=== PATIENT | female | born 1995 | race Caucasian/White ===

== ENCOUNTER → 2017-06-12 14:52 | Outpatient (CLI) | payer MEDICAID, SELFPAY ==
[2017-06-12 15:47] LABS: Hemoglobin 14.4 g/dl (12.0-15.0); Mean Corp Hgb Conc 32.7 g/gl (32-36); Mean Corpuscular Hgb 28.7 pg (27.0-32.0); Mean Corpuscular Volume 87.8 fL (81-99); Mean Platelet Vol. 11.5 fl (6.2-12.0); Platelet Count 231 K/mm3 (150-450); RBC Distribution Width CV 13.3 % (11.6-14.6); Red Blood Count 5.01 M/mm3 (4.2-5.4); White Blood Count 8.2 K/mm3 (4.4-11.0)
[2017-06-12 15:48] LABS: Scan Indicated on CBC? Y/N NO
[2017-06-12 15:55] LABS: Erythrocyte Sedimentation Rate 2 mm/hr (0-20)
[2017-06-12 16:09] LABS: Thyroid Stim Hormone (TSH) 1.76 uIU/mL (0.358-3.74)
== END ==
PROVIDERS: Visit Provider Obstetrics & Gynecology
DX: N92.1 Excessive and frequent menstruation with irregular cycle (principal)
CPT/HCPCS: 84443; 85027; 85652

== ENCOUNTER 2017-07-06 08:05 | Day surgery (SDC) | payer MEDICAID, SELFPAY ==
[2017-06-22 17:38] LABS: Hematocrit 40.2 % (37-47); Hemoglobin 13.7 g/dl (12.0-15.0); Mean Corp Hgb Conc 34.1 g/gl (32-36); Mean Corpuscular Hgb 29.5 pg (27.0-32.0); Mean Corpuscular Volume 86.6 fL (81-99); Mean Platelet Vol. 11.9 fl (6.2-12.0); Platelet Count 260 K/mm3 (150-450); RBC Distribution Width SD 40.2 fl (35.1-43.9); Red Blood Count 4.64 M/mm3 (4.2-5.4); White Blood Count 7.4 K/mm3 (4.4-11.0)
[2017-06-22 17:42] LABS: Partial Thromboplast Time 27.1 Seconds (24.1-36.2)
[2017-06-22 18:24] LABS: Scan Indicated on CBC? Y/N NO
[2017-07-06] VITALS (8 sets, daily range): BP systolic 117–142; BP diastolic 72–89; PULSE 88–109; RESP 16–18; TEMP 36.1–36.6; O2SAT 96–100; BMI 27.6
--- NOTE | 2017-07-06 | MISC_PTH ---
PATIENT: YVETTE MIJARES [place] [facility] [id number] AGE/SX: 21/F ROOM: RE07/06/[address]: Dr. Nickie Liz MD : 1995 BED: DIS: 07/06/2017 SPEC #: [id number] RECD: 07/07/17 13:19 STATUS: ERENDIRA REQ #: [id number] NADINE: 07/06/17 00:[address]: Nickie Moreno DEPT: SURGICAL PATHOLOGY RECD BY: Jair Peña ENTERED: 07/07/17 13:20 [place] [facility] [place]: Racheal Patton, HAMZAH Tissues: A - Peritoneum, NOS B - Peritoneum, NOS C - Peritoneum, NOS Procedures: Surgery Specimen Level IV HEADER OPERATION: Diagnostic laparoscopy, excision of endometriosis PRE-OP DIAGNOSIS: Chronic pelvic pain TISSUE SUBMITTED: A ? Right uterosacral biopsy, B ? Right ovarian fossa peritoneum biopsy, C ? Anterior cul-de-sac biopsy MICROSCOPIC DIAGNOSIS A. Right uterosacral biopsy: Mesothelial-lined fibroadipose and fibroconnective tissue, negative for endometriosis. B. Right ovarian fossa peritoneum, biopsy: Mesothelial-lined fibroadipose and fibroconnective tissue, negative for endometriosis.. C. Anterior cul-de-sac, biopsy: Mesothelial-lined fibroadipose and fibroconnective tissue, negative for endometriosis. GINA:mylene 07/11/17 MICROSCOPIC DESCRIPTION Slides are reviewed. GROSS DESCRIPTION A - Received in fixative is one container labeled with the patient's name and designated right uterosacral biopsy. The specimen consists of a piece of brewer soft tissue measuring 0.7 x 0.5 x 0.1 cm. The specimen is totally submitted in one cassette. B - Received in fixative is one container labeled with the patient's name and designated right ovarian fossa peritoneum. The specimen consists of an irregular piece of brewer-pink soft tissue measuring 2 x 1 x 0.2 cm. The specimen is totally submitted in one cassette. C - Received in fixative is one container labeled with the patient's name and designated anterior cul-de-sac. The specimen consists of two pieces of brewer soft tissue that in aggregate measure 1 x 0.1 x 0.1 cm. The specimen is totally submitted in one cassette. / GINA:mylene 07/07/17 TC:5 CPT: 68752 x3
[2017-07-06 08:23] LABS: Internal QC Validated? YES +Cl - CLEAR BKGD; Pregnancy, Urine Negative Negative
[2017-07-06] MEDS: Bupivacaine Mpf 0.5% 30 ML VIAL (12:57)
--- NOTE | 2017-07-06 13:07 | PCM.DC ---
- Discharge Diagnoses Current Active Problems: Endometriosis Reason(s) for Visit for Discharge Instructions: Laparoscopy You will use the following diet at home:: No restrictions Your food should be the consistency of: Regular Discharge Activity: Return to Normal Activity, May not drive while taking narcotic pain medications., May Shower, May Take a Tub Bath May resume sexual activity in: - - 2-4 weeks Lifting Restrictions: 10-20lb Call your doctor if your incision/area has: Continuous Slow Oozing, Sudden Increased Bleeding, Increased Pain/ Swelling, Increased Redness Call your doctor if you observe: Fever of 101 or Higher, Inability to urinate, Inability to have a bowel movement, Using more than one pad per hour, Shortness of breath, Chest pain, Calf discomfort, Uncontrolled pain Suture Line Care: Avoid Pulling/Pushing Cleanse incision/area with: Soap & Water, Keep Dressing Clean & Dry Additional Dressing/Incision Instructions:: Remove dressing in 24 hours. Steristrips are underneath the dressing - wet these on Monday and remove. Allergies/Adverse Reactions: Allergies amoxicillin [From Augmentin] Allergy (Verified 06/29/17 15:22) Hives cefprozil [From Cefzil] Allergy (Verified 07/06/17 08:20) Nausea/Vom/Diarrhea cefuroxime [From Ceftin] Allergy (Verified 06/29/17 15:22) Hives clavulanic acid [From Augmentin] Allergy (Verified 06/29/17 15:22) Hives Medications to take at Discharge Norgestimate-Ethinyl Estradiol [Tri-Linyah Tablet] 1 tab PO DAILY 06/29/17 Docusate Sodium [Colace] 100 mg PO BID PRN PRN #60 cap 07/06/17 Ibuprofen 600 mg PO TID PRN #30 tab 07/06/17 Oxycodone [Oxyir] 1 - 2 tab PO Q6H PRN PRN 3 Days #28 tablet 07/06/17 The following prescriptions were given: Oxycodone [Oxyir] 1 - 2 tab PO Q6H PRN PRN 3 Days #28 tablet PRN Reason: Pain Docusate Sodium [Colace] 100 mg PO BID PRN PRN #60 cap PRN Reason: Constipation Ibuprofen 600 mg PO TID PRN #30 tab PRN Reason: Pain Primary Care Physician: Racheal Patton NP-C [Primary Care Provider] - Please Follow Up With: Nickie Branham MD When: 2 weeks
--- NOTE | 2017-07-06 13:09 | PCM.OPRPT ---
Problem List (1) Chronic pelvic pain in female Status: Acute (2) Endometriosis determined by laparoscopy Status: Acute Report of Operation Date of Procedure: 07/06/17 Pre-Operative Diagnosis: Chronic pelvic pain Post-Operative Diagnosis: Chronic pelvic pain, endometriosis Surgery/Procedure Performed:: Diagnostic laparoscopy, surgical treatment of endometriosis Description of Surgical Findings:: Peritoneal endometriosis in right ovarian fossa and right uterosacral ligament. Thin pelvic adhesions. licensed physical therapy assistant: Elinor Moya Type of Anesthesia:: General Anesthesiologist: Ilan Chang Specimen's removed: R. ovarian fossa peritoneum. R. uterosacral peritoneum. anterior culdesac biopsy Drains: 350 ml urine Estimated Blood Loss (mL): 50 Fluids Replaced: 1400 ml Description of Procedure: Indications: Cristobal is a 21-year-old 1 para 1001 with history of chronic pelvic pain refractory to medical management. Following counseling she had opted to proceed with diagnostic laparoscopy to rule out endometriosis. Risks, benefits, indications of procedure were reviewed at length as well as other medical alternatives. Procedure: The patient was taken to the operating room and signed and was performed. She is placed in the dorsal supine position and induced under general anesthesia and intubated. She was then placed into dorsal lithotomy and her arms were tucked at her sides. An examination under anesthesia was performed. The perineum and abdomen were prepped and draped in sterile fashion. 3 catheterization of the bladder was performed. A weighted speculum placed into the vagina and the anterior cervical lip grasped using a single-tooth tenaculum and a Conn cannula placed and secured for uterine manipulation. Patient was then placed into low lithotomy and attention turned to the abdomen. An inferior umbilical incision was made using a scalpel. A Veress needle was placed with successful hanging drop test and no aspirate. The abdomen was insufflated to 15 mmHg. Patient was placed into Trendelenburg. A second suprapubic incision was made and a 5 mm port was placed under laparoscopic guidance. Inspection of the abdomen and pelvis was performed demonstrating a annual depression within the ovarian fossa extending to the right uterosacral concerning for endometriosis. At this time I proceeded with of right and left incisions and 5 mm ports. The bladder however had already refilled by this point the Magdaleno catheter was placed. In continuing the abdominal portion of the surgery the right ureter was identified and trace over the pelvic brim into the pelvis. The ovarian fossa and uterosacral peritoneum was grasped and incised and sharply and bluntly dissected using a laparoscopic marce and suction device. The peritoneal biopsies were obtained. This was irrigated and suctioned. A filmy adhesion from the anterior cul-de-sac was excised and removed. Electrocoagulation was performed to obtain hemostasis at the most medial portion of the uterosacral ligament peritoneum staying clear of the ureter and bowel. Keyon was also placed for continued hemostasis. The procedure was complete. Abdomen was desufflated and the ports were removed from the abdomen. The skin was closed using 4-0 Monocryl and Steri-Strips and OpSite dressing were placed over the incisions. Half percent Sensorcaine was placed locally at the incisional sites. The patient was placed into high lithotomy and the tenaculum and uterine manipulator were removed. Tenaculum site was hemostatic. Patient was then placed into dorsal lithotomy, awakened, extubated and transferred to the recovery room without complication. Sponge and needle counts were correct ?2. Patient tolerated the procedure well. - Complications None - Admit VTE Documentation VTE Present on Admission: No VTE Mechan Device Prophylaxis: SCD's VTE Pharm Prophylaxis ordered?: No
--- NOTE | 2017-07-06 15:19 | PCM.DC ---
- Discharge Diagnoses Current Active Problems: Current Active and Chronic Problems Endometriosis determined by laparoscopy (Acute) Chronic pelvic pain in female (Acute) Reason(s) for Visit for Discharge Instructions: Laparoscopy You will use the following diet at home:: No restrictions Your food should be the consistency of: Regular Discharge Activity: Return to Normal Activity, May not drive while taking narcotic pain medications., May Shower, May Take a Tub Bath May resume sexual activity in: - - 2-4 weeks Lifting Restrictions: 10-20 lb Call your doctor if your incision/area has: Continuous Slow Oozing, Sudden Increased Bleeding, Increased Pain/ Swelling, Increased Redness Call your doctor if you observe: Fever of 101 or Higher, Inability to urinate, Inability to have a bowel movement, Using more than one pad per hour, Shortness of breath, Chest pain, Calf discomfort, Uncontrolled pain Suture Line Care: Avoid Pulling/Pushing Cleanse incision/area with: Soap & Water, Keep Dressing Clean & Dry Additional Dressing/Incision Instructions:: Remove dressing in 24 hours. Steristrips are underneath the dressing - wet these on Monday and remove. Allergies/Adverse Reactions: Allergies amoxicillin [From Augmentin] Allergy (Verified 06/29/17 15:22) Hives cefprozil [From Cefzil] Allergy (Verified 07/06/17 08:20) Nausea/Vom/Diarrhea cefuroxime [From Ceftin] Allergy (Verified 06/29/17 15:22) Hives clavulanic acid [From Augmentin] Allergy (Verified 06/29/17 15:22) Hives Medications to take at Discharge Norgestimate-Ethinyl Estradiol [Tri-Linyah Tablet] 1 tab PO DAILY 06/29/17 Docusate Sodium [Colace] 100 mg PO BID PRN PRN #60 cap 07/06/17 Ibuprofen 600 mg PO TID PRN #30 tab 07/06/17 Ondansetron HCl [Zofran] 4 mg PO TID PRN #15 tab 07/06/17 Oxycodone [Oxyir] 1 - 2 tab PO Q6H PRN PRN 3 Days #28 tablet 07/06/17 The following prescriptions were given: Oxycodone [Oxyir] 1 - 2 tab PO Q6H PRN PRN 3 Days #28 tablet PRN Reason: Pain Docusate Sodium [Colace] 100 mg PO BID PRN PRN #60 cap PRN Reason: Constipation Ibuprofen 600 mg PO TID PRN #30 tab PRN Reason: Pain Ondansetron HCl [Zofran] 4 mg PO TID PRN #15 tab PRN Reason: Nausea Primary Care Physician: Racheal Patton NP-C [Primary Care Provider] - Please Follow Up With: Nickie Branham MD When: 2-4 weeks
== END 2017-07-06 17:58 | disposition home or self-care (01) ==
LOC: SDC 08:07 → AC 08:07
PROVIDERS: Family Provider Clinical Nurse Specialist; PCP Clinical Nurse Specialist; Visit Provider Obstetrics & Gynecology
PROC: (CPT 49320; principal; 2017-07-06 09:15)
DX: N80.3 Endometriosis of pelvic peritoneum (principal); R10.2 Pelvic and perineal pain; G89.29 Other chronic pain; J45.909 Unspecified asthma, uncomplicated; K21.9 Gastro-esophageal reflux disease without esophagitis
CPT/HCPCS: 00840; 58662; 36415; 81025; 85027; 85610; 85730; 86850; 86900; 88305; J7120; J2405

== ENCOUNTER → 2017-10-09 18:59 | Outpatient (CLI) | payer MEDICAID, SELFPAY | PROVIDERS: Family Provider Clinical Nurse Specialist; PCP Clinical Nurse Specialist; Visit Provider Obstetrics & Gynecology | DX: R30.0 Dysuria (principal) | CPT/HCPCS: 87086 ==

== ENCOUNTER → 2018-10-02 | Outpatient (CLI) | payer MEDICAID, SELFPAY ==
[2018-10-02 19:22] LABS: Chlamydia Trachomatis by PCR Negative (Negative); Neisserai gonorrhoeae by PCR Negative (Negative); Probe Check PASS; Sample Adequacy Control PASS; Specimen Processing Control PASS
== END | disposition home or self-care (01) ==
LOC: LABSPEC 15:19
PROVIDERS: Visit Provider Obstetrics & Gynecology
DX: Z11.3 Encounter for screening for infections with a predominantly sexual mode of transmission (principal)
CPT/HCPCS: 87491; 87591

== ENCOUNTER → 2019-05-02 07:52 | Outpatient (CLI) | payer MEDICAID, SELFPAY ==
--- NOTE | 2019-05-02 07:55 | US_ITS ---
STUDY: ULTRASOUND BREAST - LEFT REASON FOR EXAM: Female, 23 years old. Palpable lump left breast. TECHNIQUE: Axial and longitudinal images of the LEFT breast were performed with a high resolution ultrasound transducer. # OF IMAGES: 40 COMPARISON: None. FINDINGS: LEFT Breast: The upper outer quadrant of the left breast was examined by ultrasound. No sonographic abnormality is seen. US/Breast Limited Unilateral IMPRESSION: No sonographic abnormality is seen. ASSESSMENT CATEGORY: BIRADS Category 1: Negative. A letter regarding these results will be sent to the patient by the facility within 30 days. Electronically Signed: Kurt Lockwood, at 9:54 EDT , Service support ,
== END ==
PROVIDERS: PCP Internal Medicine; Referring Provider Obstetrics & Gynecology; Visit Provider Obstetrics & Gynecology
DX: N63.21 Unspecified lump in the left breast, upper outer quadrant (principal)
CPT/HCPCS: 76642

== ENCOUNTER → 2019-09-06 | Outpatient (CLI) | payer MEDICAID, SELFPAY ==
[2017-07-06 08:21] VITALS: BMI 27.6
[2019-09-11 21:51] LABS: HPV Reflexed? NOT INDICATED
== END | disposition home or self-care (01) ==
PROVIDERS: PCP Internal Medicine; Visit Provider Obstetrics & Gynecology
DX: Z12.4 Encounter for screening for malignant neoplasm of cervix (principal); N76.0 Acute vaginitis; A49.3 Mycoplasma infection, unspecified site
CPT/HCPCS: 88175; G0145

== ENCOUNTER → 2021-04-22 | Outpatient (CLI) | payer MEDICAID, SELFPAY | END | disposition home or self-care (01) | LOC: WOBLAB 13:59 | PROVIDERS: PCP Internal Medicine; Visit Provider Obstetrics & Gynecology | DX: R30.0 Dysuria (principal); R39.15 Urgency of urination; R35.0 Frequency of micturition; R31.9 Hematuria, unspecified | CPT/HCPCS: 87077; 87086; 87088; 87186 ==

== ENCOUNTER 2021-04-23 10:48 | Outpatient (CLI) | payer MEDICAID, SELFPAY ==
[2021-04-23 11:11] LABS: Hematocrit 41.8 % (37-47); Mean Corp Hgb Conc 33.5 g/dL (32-36); Mean Corpuscular Hgb 30.4 pg (27.0-32.0); Mean Corpuscular Volume 90.7 fL (81-99); Mean Platelet Vol. 11.2 fl (6.2-12.0); Platelet Count 219 K/mm3 (150-450); RBC Distribution Width CV 13.5 % (11.6-14.6); RBC Distribution Width SD 45.3 fl (35.1-43.9); Red Blood Count 4.61 M/mm3 (4.2-5.4); White Blood Count 5.6 K/mm3 (4.4-11.0)
[2021-04-23 13:59] LABS: T4 Free Direct 1.06 ng/dL (0.76-1.46); Thyroid Stim Hormone (TSH) 1.31 uIU/mL (0.358-3.74)
[2021-04-26 19:07] LABS: Chlamydia By Nucleic Acid AMP Negative (Negative)
[2021-04-26 20:56] LABS: Gonococcus By Nucleic Acid AMP Negative (Negative)
== END 2021-04-23 23:59 | disposition home or self-care (01) ==
LOC: WOBLAB 10:49
PROVIDERS: PCP Internal Medicine; Visit Provider Obstetrics & Gynecology
DX: Z11.3 Encounter for screening for infections with a predominantly sexual mode of transmission (principal); N92.0 Excessive and frequent menstruation with regular cycle
CPT/HCPCS: 36415; 84439; 84443; 85027; 87491; 87591